=== PATIENT | male | born 1965 | race African-American/Black ===

== ENCOUNTER 2016-11-28 14:20 | Inpatient (IN) | payer OTHER ==
--- NOTE | ~2016-11-28 | DS ---
Unit #: [id number] #: [id number] Patient: BARBARA NATHAN [id number] [facility] [address] [place] [address] [id number] I MR#: [id number] NAME: BARBARA NATHAN ROOM: P208 Age: 51 Sex: M Admission Date: 11/28/2016 : 1965 Discharge Date: 12/04/2016 Attending Physician: Mateo Teague M.D. Primary Care Physician: Wong Colón M.D. DISCHARGE SUMMARY REASON FOR ADMISSION Mr. Nathan is a 51-year-old man, who told his therapist he was having increasing hopelessness, helplessness, and had been abusing alcohol and cocaine. He had some suicidal ideation and could not contract for safety. He was admitted for stabilization. LABORATORY DATA Please see hospital chart. HOSPITAL COURSE The patient was admitted and placed on the alcohol detox protocol and suicide precautions. Remeron 30 mg at bedtime was initiated for treatment of depression and he enrolled in dual diagnosis groups and activities. His suicidal ideation resolved and his alcohol detox was uneventful with no delirium, hallucinations, or seizures. We were able to obtain [facility] placement and he was discharged in stable condition. DISCHARGE DIAGNOSES AXIS I: Alcohol dependence. Major depressive disorder. AXIS II: No diagnosis. AXIS III: None acute. AXIS IV: AXIS V: DISCHARGE INSTRUCTIONS Follow up with [facility] and primary care physician. DISCHARGE MEDICATIONS Remeron 30 mg at bedtime for depression. CONDITION AT DISCHARGE Improved. PROGNOSIS Fair to good. DIET AND ACTIVITY Ad abimael. Dictated by... Mateo Teague M.D. Unit #: [id number] #: [id number] Patient: BARBARA NATHAN [facility]/modl TD: 12/15/2016 14:45 JOB #: [id number] DISCHARGE SUMMARY Page 1 of 1 X Mateo Teague MD X DISCHARGE SUMMARY
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
--- NOTE | ~2016-11-28 | HP ---
Unit #: [id number] #: [id number] Patient: JUAN NATHAN [id number] [place] [address] [id number] MR#: [id number] NAME: JUAN NATHAN ROOM: P208 Age: 51 Sex: M Admission Date: 11/28/2016 : 1965 Attending Physician: Matoe Teague M.D. Admitting Physician: Mateo Teague M.D. Primary Care Physician: Wong Colón M.D. HISTORY AND PHYSICAL HISTORY OF PRESENT ILLNESS Juan is a 51 year old admitted to [address] [place] [address] because of his polysubstance abuse which includes alcohol and cocaine. PAST MEDICAL HISTORY 1. Long history of alcohol abuse. 2. History of illicit substance abuse. 3. History of PUD. PAST SURGICAL HISTORY Left foot. ALLERGIES No known drug allergies. SOCIAL HISTORY Smokes 1 pack per day. Drinks at least a 6 pack on a daily basis and admits to regular use of cocaine. FAMILY HISTORY Medically noncontributory. REVIEW OF SYSTEMS CONSTITUTIONAL: No fever or chills. HEENT: Denies any sore throat, ear pain or runny nose. CARDIOVASCULAR: Denies chest pain, irregular heart rhythm or palpitations. CHEST: Denies shortness of breath or cough. No hemoptysis. GASTROINTESTINAL: Denies nausea, vomiting, diarrhea or chronic constipation. ENDOCRINE: Denies history of increased thirst or urination. No recent significant weight loss or gain. GENITOURINARY: Denies dysuria, frequency, or hematuria. SKIN: Denies any rashes. HEMATOLOGIC: Denies history of increased bleeding or bruising. MUSCULOSKELETAL: Denies any hot, swollen joints. No generalized muscle pain. NEUROLOGIC: Denies problems with vision or speech. No frequent, severe headaches. No numbness, tingling or weakness in any extremities. Denies loss of bladder or bowel control. CURRENT MEDICATIONS 1. Desyrel 50 mg q.h.s. 2. Milk of Magnesia p.r.n. Unit #: [id number] #: [id number] Patient: JUAN NATHAN 3. Maalox p.r.n. 4. Tylenol p.r.n. 5. Nicotine patch 14 mg daily. PHYSICAL EXAMINATION GENERAL: Alert, well-nourished, in no apparent distress. VITAL SIGNS: Blood pressure 116/82, heart rate 80, respirations 16, temperature 98.6. WEIGHT: 175. HEIGHT: 5 feet 8 inches. SKIN: Warm and dry without rash or lesion. HEENT: Normocephalic. TMs not viewed. Oral and nasal passages clear. Conjunctivae clear. PERRLA. EOMs intact. NECK: Supple without lymphadenopathy or thyromegaly. HEART: Regular rate and rhythm without murmur. LUNGS: Clear. ABDOMEN: Soft, nontender. : Not done. EXTREMITIES: No evidence of cyanosis, clubbing or edema. Moves all without focal deficit. NEUROLOGICAL: Grossly within normal limits. Cranial Nerves: II: Visual diaz are intact. III, IV AND : Extraocular movements are intact. Pupils are equal, round and reactive to light. V: Facial sensation is grossly normal. VII: Facial movements and expression are normal. VIII: Auditory acuity grossly intact. IX, X: Uvula is midline. Phonation is normal. XI: Patient shrugs shoulders and turns head normally. XII: Tongue protrudes in the midline. Sensory and Motor Function: Sensory and motor sensation is grossly normal. Motor: moves all extremities well. Coordination: Gait is normal. Deep Tendon Reflexes: Intact. IMPRESSION Psychiatric admission. RECOMMENDATIONS PSYCHIATRIC: Per psychiatrist. MEDICAL: See no contraindications to participate in facility's activities. MEDICAL PROGNOSIS Good. MEDICAL CONDITION Stable. Dictated by... Sowmya Reyes P.A.-C. for Dallas Zhu/chan TD: 11/28/2016 19:47 JOB #: [id number] Unit #: [id number] #: [id number] Patient: JUAN NATHAN HISTORY AND PHYSICAL Page 1 of 1 X Sowmya Reyes HISTORY AND PHYSICAL
--- NOTE | ~2016-11-28 | PN ---
Unit #: [id number] #: [id number] Patient: BARBARA NATHAN [id number] [place] [address] [id number] I MR#: [id number] NAME: BARBARA NATHAN ROOM: P208 Age: 51 Sex: M Admission Date: 11/28/2016 : 1965 Attending Physician: Mateo Teague M.D. Admitting Physician: Mateo Teague M.D. Primary Care Physician: Dallas Saini PROGRESS NOTES DATE 12/03/2016 This is Evon Dickens A.P.R.N. covering for Dr. Mateo Teague at [facility]. DISCUSSION This patient was seen and assessed on 12/03/2016. Upon today's assessment, the patient reports "I am good." He still reports that he is looking forward to his discharge tomorrow and his plans are to followup at [facility]. He states that on Sunday, there will be a van waiting to pick him up at approximately 12:30 and that he is looking forward to his treatment at that facility. At this time he denies suicidal or homicidal ideation and verbalizes no plan or intent. Dictated by... KLEVER Castro TD: 12/06/2016 08:04 JOB #: [id number] [facility] PROGRESS NOTES Page 1 of 1 X EVON DICKENS PROGRESS NOTE
[2016-11-29 09:43] LABS: BASOPHIL% 0.3 % (0-2.5); EOSINOPHIL# 0.1 X10e3 (0-0.7); EOSINOPHIL% 1.2 % (0.0-7.0); HEMATOCRIT 40.3 % (38.0-50.0); HEMOGLOBIN 13.7 gm/dL (13.0-16.0); LYMPHOCYTE# 2.5 X10e3 (1.0-3.5); LYMPHOCYTE% 31.1 % (17.0-45.0); MEAN CELL VOLUME 85.1 FL (83-96); MEAN CORPUSCULAR HEMOGLOBIN 28.9 PG (28-34); MEAN PLATELET VOLUME 8.3 FL (6.5-11.5); MONOCYTE# 0.4 X10e3 (0-1.0); MONOCYTE% 4.4 % (3.0-12.0); PLATELET COUNT 263 X10e3 (140-420); RED BLOOD COUNT 4.73 X10e (3.90-5.60); RED CELL DISTRIBUTION WIDTH 14.7 % (11.0-15.5)
[2016-11-29 09:53] LABS: DIFF IND NO
[2016-11-29 09:55] LABS: ALBUMIN SERUM 3.7 g/dL (3.5-5.0); BILIRUBIN,TOTAL 0.3 mg/dL (0.2-2.0); BUN/CREATININE RATIO 9.16; CREATININE SERUM 1.2 mg/dL (0.6-1.4); GLOM FILT RATE Estimated 81.3 mL/min (>60); POTASSIUM 4.5 mmol/L (3.5-5.1); PROTEIN TOTAL SERUM 6.4 g/dL (6.0-8.3)
[2016-12-01 10:23] LABS: AMPHETAMINE NEG (NEG); BARBITURATES NEG (NEG); BENZODIAZEPINES NEG (NEG); COCAINE POS (NEG); MARIJUANA NEG (NEG); OPIATES NEG (NEG); TRICYCLIC ANTIDEPRESSANTS NEG (NEG); U METHADONE NEG (NEG)
== END 2016-12-04 11:30 | disposition home or self-care (01) | DRG 897 ==
LOC: P2S 15:52
PROVIDERS: Psychiatry & Neurology Psychiatry
PROC: HZ2ZZZZ Detoxification Services for Substance Abuse Treatment (ICD-10-PCS; principal; 2016-11-28)
DX: F10.20 Alcohol dependence, uncomplicated (principal); F14.20 Cocaine dependence, uncomplicated; F10.230 Alcohol dependence with withdrawal, uncomplicated; F32.9 Major depressive disorder, single episode, unspecified; Z56.0 Unemployment, unspecified; F17.210 Nicotine dependence, cigarettes, uncomplicated
CPT/HCPCS: 80053; 80307; 85025